=== PATIENT | female | born 1995 | race Asian ===

== ENCOUNTER 2017-10-22 11:27 | Emergency (ER) | payer SELFPAY ==
[2017-10-22] MEDS ORDERED: LIDOCAINE PATCH 5% TOP PRN (13:39)
[2017-10-22] MEDS ORDERED: IBUPROFEN 400 MG TABLET PO STA (13:39)
--- NOTE | 2017-10-22 13:41 | ED Physician Documentation ---
History of Present Illness - Stated complaint Stated Complaint: RIB PX - Chief complaint Chief Complaint: General - Additonal information Additional information: hx from pt recent cough now left tibs hurt with cough no dyspnea no abd pain no leg swelling no travel non smoker denies preg Review of Systems Constitutional: denies: Fever, Chills Cardiac: reports: Chest pain / pressure Respiratory: reports: Cough. denies: Dyspnea GI: denies: Abdominal Pain : denies: Now EGA Endocrine: denies: Easy bruising / bleeding Immunocompromised: denies: Immunocompromised PD PAST MEDICAL HISTORY - Past Medical History Past Medical History: No - Past Surgical History Past Surgical History: No - Present Medications Home Medications: Ambulatory Orders Medication Instructions Recorded Confirmed Praziquantel [Biltricide] 600 mg PO ONCE #1 tablet 03/20/15 Promethazine [Phenergan] 25 - 50 mg PO Q6H PRN #10 tab 03/20/15 Benzonatate [Tessalon] 100 mg PO TID PRN #20 capsule 10/22/17 Lidocaine Patch 5% [Lidoderm Patch] 1 each TOP DAILY PRN #10 patch 10/22/17 guaiFENesin/DEXTROMETHORPHAN 10 ml PO Q6H PRN #120 ml 10/22/17 [Robitussin Dm] - Allergies Allergies/Adverse Reactions: Allergies Allergy/AdvReac Type Severity Reaction Status Date / Time No Known Drug Allergies Allergy Verified 10/22/17 11:42 - Social History Does the pt smoke?: No Smoking Status: Never smoker Does the pt drink ETOH?: No Does the pt have substance abuse?: No - Immunizations Immunizations are current?: Yes PD ED PE NORMAL - Vitals Vital signs reviewed: Yes - General General: Alert and oriented X 3 - HEENT HEENT: PERRL - Neck Neck: Supple, no meningeal sign - Cardiac Cardiac: RRR - Respiratory Respiratory: No respiratory distress, Clear bilaterally, Other (TTP low left lateral to ant ribs, no crepitus ernesto equal breath sounds) - Abdomen Abdomen: Soft, Non tender - Extremities Extremities: No tenderness to palpate, Normal ROM s pain, No edema, No calf tenderness / cord - Neuro Neuro: Alert and oriented X 3 Results - Vitals Vitals: Vital Signs - 24 hr 10/22/17 10/22/17 11:39 15:06 Temperature 36.7 C Heart Rate 69 58 L Respiratory 17 17 Rate Blood Pressure 116/54 L 113/84 H O2 Saturation 100 100 Oxygen O2 Source Room air - Rads (name of study) CXR Radiology: See rad report (NACPD) Departure - Departure Disposition: 01 Home, Self Care Clinical Impression: Chest wall pain Condition: Good Instructions: ED Strain Chest Wall Prescriptions: Benzonatate [Tessalon] 100 mg PO TID PRN #20 capsule PRN Reason: to ease cough guaiFENesin/DEXTROMETHORPHAN [Robitussin Dm] 10 ml PO Q6H PRN #120 ml PRN Reason: Cough Lidocaine Patch 5% [Lidoderm Patch] 1 each TOP DAILY PRN #10 patch PRN Reason: Pain Comments: The xray was fine. No broken ribs, collapsed lung, or lung infection Your exam and history do not suggest a blood clot in your lungs The pain is likely due to straining your chest wall coughing so hard. I have prescribed medications you ease your symptoms Follow up PMD as needed Return if worse
--- NOTE | 2017-10-22 14:37 | XRAY Report ---
EXAM: CHEST RADIOGRAPHY EXAM DATE: 10/22/2017 02:19 PM. CLINICAL HISTORY: L rib pain after cough for a few weeks. COMPARISON: None. TECHNIQUE: 2 views. FINDINGS: Lungs/Pleura: No focal consolidation. No pleural effusion. No pneumothorax. Normal volumes. Mediastinum: Heart and mediastinal contours are normal. Other: Osseous structures are unremarkable. IMPRESSION: Normal 2-view chest radiography. [facility] Referring Provider Line: [phone] SITE ID: [id number]
[2017-10-22 15:07] VITALS: BP 113/84
== END 2017-10-22 15:36 | disposition home or self-care (01) ==
LOC: ED 11:27
DX: R07.89 Other chest pain (principal)
CPT/HCPCS: 71046; 99283; A9270

== ENCOUNTER 2018-04-02 00:39 | Emergency (ER) | payer MEDICAID ==
[2018-04-02 00:52] VITALS: BP 109/73
[2018-04-02 01:23] LABS: BILIRUBIN,URINE NEGATIVE (NEGATIVE); GLUCOSE, URINE (UA) NEGATIVE (NEGATIVE); KETONES,URINE (UA) NEGATIVE (NEGATIVE); LEUKOCYTE ESTERASE, URINE TRACE (NEGATIVE); NITRITE,URINE NEGATIVE (NEGATIVE); OCCULT BLOOD,URINE MODERATE (NEGATIVE); PROTEIN,URINE 30 mg/dL (NEGATIVE); UROBILINOGEN,URINE 0.2 (NORMAL) E.U./dL (NORMAL)
[2018-04-02 01:25] LABS: CLARITY,URINE HAZY (CLEAR); HCG UR QUAL NEGATIVE
[2018-04-02 01:35] LABS: BACTERIA,URINE Few /HPF (None Seen); SQUAMOUS EPITHELIAL CELL,UR FEW Squamous (<= Few)
[2018-04-02] MEDS ORDERED: PHENAZOPYRIDINE 100 MG TABLET PO STA (01:38)
[2018-04-02] MEDS ORDERED: SULFAMETH/TRIMETH DS 800/160 MG TABLET PO STA (01:38)
--- NOTE | 2018-04-02 01:40 | ED Physician Documentation ---
PD HPI FEMALE - Stated complaint Stated Complaint: FEMALE - Chief complaint Chief Complaint: Abd Pain - History obtained from History obtained from: Patient - History of Present Illness Timing - onset: Today Timing - details: Gradual onset, Still present Associated symptoms: Dysuria, Urinary frequency Similar symptoms before: Has not had sx before Recently seen: Not recently seen - Additional information Additional information: Patient is a 22 year old female with no significant past medical history who is presenting to the emergency department for dysuria. patient states that her symptoms started earlier today. Review of Systems Ten Systems: 10 systems reviewed and negative Constitutional: denies: Fever, Chills GI: denies: Nausea, Vomiting : reports: Dysuria, Frequency PD PAST MEDICAL HISTORY - Past Medical History Past Medical History: No - Past Surgical History Past Surgical History: No - Present Medications Home Medications: Ambulatory Orders Medication Instructions Recorded Confirmed Praziquantel [Biltricide] 600 mg PO ONCE #1 tablet 03/20/15 Promethazine [Phenergan] 25 - 50 mg PO Q6H PRN #10 tab 03/20/15 Benzonatate [Tessalon] 100 mg PO TID PRN #20 capsule 10/22/17 Lidocaine Patch 5% [Lidoderm Patch] 1 each TOP DAILY PRN #10 patch 10/22/17 guaiFENesin/DEXTROMETHORPHAN 10 ml PO Q6H PRN #120 ml 10/22/17 [Robitussin Dm] Phenazopyridine HCl [Pyridium] 200 mg PO TID PRN #6 tablet 04/02/18 Sulfamethox/Trimeth 800/160 1 each PO BID #14 tablet 04/02/18 [Bactrim Ds 800/160] - Allergies Allergies/Adverse Reactions: Allergies Allergy/AdvReac Type Severity Reaction Status Date / Time No Known Drug Allergies Allergy Verified 10/22/17 11:42 - Social History Does the pt smoke?: No Smoking Status: Never smoker Does the pt drink ETOH?: No Does the pt have substance abuse?: No - Immunizations Immunizations are current?: Yes - POLST Patient has POLST: No PD ED PE NORMAL - Vitals Vital signs reviewed: Yes - General General: Alert and oriented X 3, No acute distress, Well developed/nourished - HEENT HEENT: Atraumatic - Cardiac Cardiac: RRR - Respiratory Respiratory: No respiratory distress - Abdomen Abdomen: Soft, Non distended - Derm Derm: Normal color, Warm and dry, No rash - Extremities Extremities: No deformity - Neuro Neuro: Alert and oriented X 3, No motor deficit Eye Opening: Spontaneous - Psych Psych: Normal mood PD ED PE EXPANDED - Abdomen Abdomen: Tender to palpation, Suprapubic (minimal tenderness to palpation) Results - Vitals Vitals: Vital Signs - 24 hr 04/02/18 00:50 Heart Rate 61 Respiratory 15 Rate Blood Pressure 109/73 O2 Saturation 100 Oxygen O2 Source Room air - Labs Labs: Laboratory Tests 04/02/18 04/02/18 01:14 01:14 Urine Color YELLOW Urine Clarity HAZY Urine pH 7.0 Ur Specific [place] 1.025 1.025 Urine Protein 30 H Urine Glucose (UA) NEGATIVE Urine Ketones NEGATIVE Urine Occult Blood MODERATE H Urine Nitrite NEGATIVE Urine Bilirubin NEGATIVE Urine Urobilinogen 0.2 (NORMAL) Ur Leukocyte Esterase TRACE H Urine RBC 6-10 H Urine WBC >25 H Ur Squamous Epith Cells FEW Squamous Urine Bacteria Few Ur Microscopic Review INDICATED Urine Culture Comments INDICATED Urine HCG, Qual NEGATIVE PD MEDICAL DECISION MAKING - ED course Complexity details: reviewed old records, reviewed results, re-evaluated patient, considered differential, d/w patient ED course: Patient was seen and examined at bedside. Patient was well appearing and in no distress. urine was collected and was consistent with urinary tract infection. patient was treated with bactrim and pyridium. patient required no further work up and was stable for discharge with outpatient followup. - Sepsis Event Vital Signs: Vital Signs - 24 hr 04/02/18 00:50 Heart Rate 61 Respiratory 15 Rate Blood Pressure 109/73 O2 Saturation 100 Oxygen O2 Source Room air Departure - Departure Disposition: 01 Home, Self Care Clinical Impression: Urinary tract infection Condition: Good Instructions: ED UTI Cystitis Female Follow-Up: OREN PARADA [Primary Care Provider] - As Needed Prescriptions: Phenazopyridine HCl [Pyridium] 200 mg PO TID PRN #6 tablet PRN Reason: dysuria Sulfamethox/Trimeth 800/160 [Bactrim Ds 800/160] 1 each PO BID #14 tablet Comments: Your symptoms are being caused by a bladder infection. You had your first dose of antibiotics tonight and you will be on them for a week. you can take pyridium, motrin or tylenol as needed for pain. You should increase your fluid intake and follow up with your doctor if your symptoms don't improve. you should return to the emergency department at any time for new, worsening or uncontrollable symptoms.
== END 2018-04-02 01:49 | disposition home or self-care (01) ==
LOC: ED 00:39
DX: N30.90 Cystitis, unspecified without hematuria (principal)
CPT/HCPCS: 81001; 81025; 87086; 99283; A9270; 81003